=== PATIENT | male | born 1975 | race Caucasian/White ===

== ENCOUNTER 2017-12-08 06:38 | Emergency (ER) | payer MEDICAID ==
[~2017-12-08] VITALS: Ht 185.4 cm; Wt 99.0 kg
[~2017-12-08 06:38] MED LIST: CLIN-80 PO; NABU500T2 PO; TRAM50TA2 PO
[2017-12-08] MEDS ORDERED: CEPH-571 PO (07:54)
[2017-12-08] MEDS ORDERED: TRAM50TA2 PO (07:54)
[2017-12-08 08:21] VITALS: BP 150/89
== END 2017-12-08 08:15 | disposition home or self-care (01) ==
LOC: ER 06:39
DX: K08.89 Other specified disorders of teeth and supporting structures (principal); Z88.1 Allergy status to other antibiotic agents
CPT/HCPCS: 99283

== ENCOUNTER 2018-07-20 10:52 | Emergency (ER) | payer MEDICAID ==
[~2018-07-20] VITALS: Ht 182.9 cm; Wt 98.4 kg
[~2018-07-20 10:52] MED LIST changes: +CEPH-571 PO; -CLIN-80 PO; +CLIN300C85 PO
[2018-07-20] MEDS ORDERED: GABA-532 PO (11:52)
[2018-07-20 12:11] VITALS: BP 153/87
== END 2018-07-20 12:13 | disposition home or self-care (01) ==
LOC: ER 10:52
DX: F11.23 Opioid dependence with withdrawal (principal); G89.29 Other chronic pain; Z88.1 Allergy status to other antibiotic agents; Z88.5 Allergy status to narcotic agent; Z79.2 Long term (current) use of antibiotics; Z79.899 Other long term (current) drug therapy
CPT/HCPCS: 99283

== ENCOUNTER 2019-03-15 13:52 | Emergency (ER) | payer MEDICAID ==
[~2019-03-15] VITALS: Ht 182.9 cm; Wt 105.5 kg
[~2019-03-15 13:52] MED LIST changes: +CLIN-96 PO; -CLIN300C85 PO; +GABA-532 PO
[2019-03-15 14:38] LABS: BASOPHILS % (AUTO) 0.5 % (0-1); EOSINOPHILS # (AUTO) 0.3 X10'3 (0-0.9); EOSINOPHILS % (AUTO) 4.5 % (0-6); HEMATOCRIT 37.2 % (42.0-52.0); HEMOGLOBIN 12.6 g/dl (14.0-17.9); LYMPHOCYTES # (AUTO) 1.9 X10'3 (1.1-4.8); LYMPHOCYTES % (AUTO) 29.5 % (21-51); MEAN CORPUSCULAR HEMOGLOBIN 30.1 PG (27.0-31.0); MEAN CORPUSCULAR VOLUME 88.4 FL (78-98); MEAN PLATELET VOLUME 8.4 FL (7.4-10.4); MONOCYTES # (AUTO) 0.6 X10'3 (0-0.9); MONOCYTES % (AUTO) 9.7 % (2-12); NEUTROPHILS # (AUTO) 3.5 X10'3 (1.8-7.7); NEUTROPHILS % (AUTO) 55.8 % (42-75); PLATELET COUNT 261 X10'3 (140-440); RED BLOOD COUNT 4.21 X10'6 (4.70-6.10); RED CELL DISTRIBUTION WIDTH 13.3 % (11.5-14.5); WHITE BLOOD COUNT 6.4 X10'3 (4.5-11.0)
[2019-03-15] MEDS ORDERED: proCHLORperazine 10 MG/2 ml inj IM ONE (14:55)
[2019-03-15 14:56] LABS: ALANINE AMINOTRANSFERASE 116 U/L (12-78); ALBUMIN/GLOBULIN RATIO 1.3 (1.1-1.5); ALKALINE PHOSPHATASE 77 IU/L (46-116); ANION GAP 5 (8-16); ASPARTATE AMINO TRANSFERASE 52 U/L (10-37); BILIRUBIN,TOTAL 0.2 MG/DL (0.1-1.0); BLOOD UREA NITROGEN 11 MG/DL (7-18); BUN/CREATININE RATIO 11.5 (5.4-32.0); CALCIUM 9.2 MG/DL (8.5-10.1); CHLORIDE 104 MMOL/L (99-107); CREATININE 0.96 MG/DL (0.60-1.10); GLUCOSE 111 MG/DL (70-104); MAGNESIUM 1.9 MG/DL (1.5-2.4); POTASSIUM 3.9 MMOL/L (3.5-5.1); SODIUM 137 MMOL/L (135-145); TOTAL CARBON DIOXIDE 28.3 MMOL/L (24-32); eGFR 85 ML/MIN
[2019-03-15] MEDS ORDERED: proCHLORperazine 10 MG/2 ml inj IV ONE (15:00)
[2019-03-15 15:36] VITALS: BP 146/90
== END 2019-03-15 15:40 | disposition home or self-care (01) ==
LOC: ER 13:53
DX: D64.9 Anemia, unspecified (principal); K62.5 Hemorrhage of anus and rectum; R51 Headache; G89.29 Other chronic pain; Z88.1 Allergy status to other antibiotic agents; Z88.5 Allergy status to narcotic agent; Z79.899 Other long term (current) drug therapy
CPT/HCPCS: 36415; 80053; 83735; 84484; 85025; 93005; 96374; 99284; J0780

== ENCOUNTER 2019-05-05 18:49 | Emergency (ER) | payer MEDICAID ==
[~2019-05-05] VITALS: Ht 180.3 cm; Wt 104.0 kg
[2019-05-05 18:54] VITALS: BP 135/89
--- NOTE | 2019-05-05 20:19 | NUR ---
PT NIL. CALLED PT AT NUMBER ON FILE. HE STATES HE IS FEELING BETTER AND DIDN'T WANT TO BE SEEN. ADVISED PT THAT WE WERE READY TO SEE HIM AND TO RETURN TO ER IF S\S RETURN OR PERSIST.
== END 2019-05-05 20:21 | disposition left against medical advice (07) ==
LOC: ER 18:50
DX: M79.602 Pain in left arm (principal); R07.89 Other chest pain; Z53.21 Procedure and treatment not carried out due to patient leaving prior to being seen by health care provider
CPT/HCPCS: 93005

== ENCOUNTER 2021-01-08 13:17 | Emergency (ER) | payer MEDICAID ==
[~2021-01-08] VITALS: Ht 182.9 cm; Wt 104.5 kg
[~2021-01-08 13:17] MED LIST changes: -CLIN-96 PO; +CLIN-97 PO; +NABU-134 PO; -NABU500T2 PO
== END 2021-01-08 15:05 | disposition left against medical advice (07) ==
LOC: ER 13:18
DX: R09.89 Other specified symptoms and signs involving the circulatory and respiratory systems (principal); M79.18 Myalgia, other site; Z53.21 Procedure and treatment not carried out due to patient leaving prior to being seen by health care provider

== ENCOUNTER 2021-05-31 20:14 | Emergency (ER) | payer MEDICAID ==
[~2021-05-31] VITALS: Ht 182.9 cm; Wt 95.0 kg
[~2021-05-31 20:14] MED LIST changes: -NABU-134 PO; +NABU-139 PO
[2021-05-31 22:02] VITALS: BP 158/95
[2021-06-01] MEDS ORDERED: CLIN-97 PO (11:08)
== END 2021-05-31 23:41 | disposition left against medical advice (07) ==
LOC: ER 20:16
DX: L02.416 Cutaneous abscess of left lower limb (principal); Z53.21 Procedure and treatment not carried out due to patient leaving prior to being seen by health care provider

== ENCOUNTER 2021-06-01 10:14 | Emergency (ER) | payer MEDICAID ==
[~2021-06-01] VITALS: Ht 182.9 cm; Wt 106.4 kg
[2021-06-01] MEDS ORDERED: clindamycin 150mg capsule PO ONE (11:05)
[2021-06-01] MEDS ORDERED: diphenhydrAMINE 25mg capsule PO ONE (11:05)
[2021-06-01] MEDS ORDERED: HYDROcodone/acetaminophen 5mg/325mg tablet PO ONE (11:05)
[2021-06-01] MEDS ORDERED: CLIN-97 PO (11:08)
[2021-06-01 11:19] VITALS: BP 111/61
== END 2021-06-01 11:19 | disposition home or self-care (01) ==
LOC: ER 10:15
DX: R09.81 Nasal congestion (principal); T36.8X5A Adverse effect of other systemic antibiotics, initial encounter; L02.416 Cutaneous abscess of left lower limb; G89.29 Other chronic pain; Z88.1 Allergy status to other antibiotic agents; Z88.8 Allergy status to other drugs, medicaments and biological substances; Z79.2 Long term (current) use of antibiotics; Z79.899 Other long term (current) drug therapy; Y92.89 Other specified places as the place of occurrence of the external cause
CPT/HCPCS: 99284; Q0163

== ENCOUNTER 2021-10-01 13:30 | Emergency (ER) | payer MEDICAID ==
[~2021-10-01] VITALS: Ht 182.9 cm; Wt 100.0 kg
[2021-10-01 13:47] VITALS: BP 200/120
[2021-10-01 14:55] LABS: BASOPHILS % (AUTO) 0.7 % (0-1); EOSINOPHILS % (AUTO) 0.2 % (0-6); HEMATOCRIT 43.2 % (42.0-52.0); HEMOGLOBIN 14.6 g/dl (14.0-17.9); LYMPHOCYTES # (AUTO) 2.4 X10'3 (1.1-4.8); LYMPHOCYTES % (AUTO) 34.5 % (21-51); MEAN CORPUSCULAR HEMOGLOBIN 28.3 PG (27.0-31.0); MEAN CORPUSCULAR HGB CONC 33.9 g/dL (33.0-36.5); MEAN CORPUSCULAR VOLUME 83.6 FL (78-98); MONOCYTES # (AUTO) 0.5 X10'3 (0-0.9); MONOCYTES % (AUTO) 6.5 % (2-12); NEUTROPHILS # (AUTO) 4.1 X10'3 (1.8-7.7); NEUTROPHILS % (AUTO) 58.1 % (42-75); PLATELET COUNT 168 X10'3 (140-440); RED BLOOD COUNT 5.17 X10'6 (4.70-6.10); RED CELL DISTRIBUTION WIDTH 13.8 % (11.5-14.5)
[2021-10-01 15:07] LABS: ALANINE AMINOTRANSFERASE 35 U/L (12-78); ALBUMIN 4.1 G/DL (3.4-5.0); ALBUMIN/GLOBULIN RATIO 1.3 (1.1-1.5); ALKALINE PHOSPHATASE 102 IU/L (46-116); ANION GAP 8 (8-16); ASPARTATE AMINO TRANSFERASE 15 U/L (10-37); BILIRUBIN,TOTAL 0.1 MG/DL (0.1-1.0); BLOOD UREA NITROGEN 11 MG/DL (7-18); BUN/CREATININE RATIO 10.9 (5.4-32.0); CALCIUM 9.3 MG/DL (8.5-10.1); CHLORIDE 101 MMOL/L (99-107); CREATININE 1.01 MG/DL (0.60-1.10); GLUCOSE 142 MG/DL (70-104); MAGNESIUM 2.1 MG/DL (1.5-2.4); POTASSIUM 3.8 MMOL/L (3.5-5.1); SODIUM 138 MMOL/L (135-145); TOTAL CARBON DIOXIDE 29.3 MMOL/L (24-32); TOTAL PROTEIN 7.3 G/DL (6.4-8.2); eGFR 79 ML/MIN
[2021-10-01 15:12] LABS: ABG BASE EXCESS 1.5 mmol/L (-2.0-2.0); ABG HCO3 27.1 mmol/L (22.0-26.0); ABG OXYGEN SATURATION 95.3 % (94-97); ABG PCO2 (T) 46.3 mmHg (35.0-48.0); ABG PO2 (T) 77.5 mmHg (75.0-100.0); ALLEN'S TEST POSITIVE; FCOHb 1.9 % (0.0-3.9); FMetHb 0.1 % (0.0-1.5); FO2Hb 93.4 % (94-97); TOTAL HEMOGLOBIN 15.1 G/dl (14.0-18.0)
--- NOTE | 2021-10-01 16:26 | NUR ---
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
--- NOTE | 2021-10-01 16:28 | NUR ---
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 Patient declines COVID test.
== END 2021-10-01 16:31 | disposition home or self-care (01) ==
LOC: ER 13:31
DX: R51.9 Headache, unspecified (principal); R11.10 Vomiting, unspecified; R42 Dizziness and giddiness; G89.29 Other chronic pain; M54.9 Dorsalgia, unspecified; Z88.0 Allergy status to penicillin; Z88.5 Allergy status to narcotic agent; Z79.899 Other long term (current) drug therapy
CPT/HCPCS: 36415; 36600; 80053; 82803; 83735; 84145; 85018; 85025; 99283

== ENCOUNTER 2022-12-11 18:42 | Emergency (ER) | payer MEDICAID ==
[~2022-12-11] VITALS: Ht 182.9 cm; Wt 105.0 kg
[2022-12-11 18:44] VITALS: BP 178/82
[2022-12-11] MEDS ORDERED: oxyCODONE/APAP 5-325mg tablet PO ONE (20:30)
[2022-12-11] MEDS ORDERED: NAPR-56 PO (20:42)
[2022-12-11] MEDS ORDERED: OXYC-145 PO (20:42)
== END 2022-12-11 21:10 | disposition home or self-care (01) ==
LOC: ER 18:43
DX: S93.492A Sprain of other ligament of left ankle, initial encounter (principal); G89.29 Other chronic pain; Z88.1 Allergy status to other antibiotic agents; Z88.5 Allergy status to narcotic agent; Z79.899 Other long term (current) drug therapy; X58.XXXA Exposure to other specified factors, initial encounter; Y93.89 Activity, other specified; Y92.89 Other specified places as the place of occurrence of the external cause; Y99.8 Other external cause status
CPT/HCPCS: 73610; 99283; L4360

== ENCOUNTER 2023-11-24 12:52 | Emergency (ER) | payer MEDICAID ==
[~2023-11-24] VITALS: Ht 180.3 cm; Wt 95.5 kg
[~2023-11-24 12:52] MED LIST changes: +OXYC-145 PO
[2023-11-24 13:00] VITALS: BP 137/86; PULSE 63; RESP 18; O2SAT 97
[2023-11-24 13:33] VITALS: TEMP 97.1
== END 2023-11-24 13:36 | disposition home or self-care (01) ==
LOC: ER 12:53
DX: L72.3 Sebaceous cyst (principal); I10 Essential (primary) hypertension; M54.50 Low back pain, unspecified; Z88.0 Allergy status to penicillin; Z88.8 Allergy status to other drugs, medicaments and biological substances; Z79.899 Other long term (current) drug therapy; Z79.2 Long term (current) use of antibiotics
CPT/HCPCS: 71045; 99283

== ENCOUNTER 2024-02-24 15:21 | Emergency (ER) | payer MEDICAID ==
[~2024-02-24] VITALS: Ht 182.9 cm; Wt 97.5 kg
[2024-02-24 16:01] LABS: BASOPHILS % (AUTO) 0.3 % (0-1); EOSINOPHILS % (AUTO) 0.2 % (0-6); HEMATOCRIT 39.5 % (42.0-52.0); LYMPHOCYTES # (AUTO) 2.1 X10'3 (1.1-4.8); LYMPHOCYTES % (AUTO) 28.9 % (21-51); MEAN CORPUSCULAR HEMOGLOBIN 27.7 PG (27.0-31.0); MEAN CORPUSCULAR HGB CONC 32.9 g/dL (33.0-36.5); MEAN PLATELET VOLUME 9.1 FL (7.4-10.4); MONOCYTES # (AUTO) 0.5 X10'3 (0-0.9); MONOCYTES % (AUTO) 6.8 % (2-12); NEUTROPHILS # (AUTO) 4.6 X10'3 (1.8-7.7); NEUTROPHILS % (AUTO) 63.8 % (42-75); PLATELET COUNT 153 X10'3 (140-440); RED CELL DISTRIBUTION WIDTH 14.2 % (11.5-14.5); WHITE BLOOD COUNT 7.2 X10'3 (4.5-11.0)
[2024-02-24 16:10] LABS: ALBUMIN 3.8 G/DL (3.4-5.0); ANION GAP 8 (8-16); CALCIUM 8.8 MG/DL (8.5-10.1); CHLORIDE 104 MMOL/L (99-107); CREATININE 0.85 MG/DL (0.60-1.10); GLUCOSE 126 MG/DL (70-104); POTASSIUM 3.8 MMOL/L (3.5-5.1); SODIUM 139 MMOL/L (135-145); TOTAL CARBON DIOXIDE 26.8 MMOL/L (24-32); eCRCL 114 ML/MIN; eGFR > 90 ML/MIN
[2024-02-24 16:14] LABS: APTT 26 SECONDS (22-32)
[2024-02-24 16:48] LABS: BLOOD UREA NITROGEN 11 MG/DL (7-18); BUN/CREATININE RATIO 12.9 (10.0-20.0)
[2024-02-24 17:17] VITALS: BP 120/69; PULSE 62; RESP 12; TEMP 98; O2SAT 100
== END 2024-02-24 19:14 | disposition left against medical advice (07) ==
LOC: ER 15:21
DX: R20.0 Anesthesia of skin (principal); M79.601 Pain in right arm; I10 Essential (primary) hypertension; Z88.0 Allergy status to penicillin; Z88.8 Allergy status to other drugs, medicaments and biological substances; Z79.899 Other long term (current) drug therapy; Z79.2 Long term (current) use of antibiotics
CPT/HCPCS: 36415; 70450; 71045; 80048; 82948; 85025; 85610; 85730; 93005; 99285

== ENCOUNTER 2025-01-16 19:42 | Emergency (ER) | payer MEDICAID ==
[~2025-01-16] VITALS: Ht 180.3 cm; Wt 102.1 kg
[2025-01-16 19:54] VITALS: BP 145/82; PULSE 71; RESP 16; TEMP 97.7; O2SAT 98
[2025-01-16 20:32] LABS: BILIRUBIN,URINE NEGATIVE (Neg); CLARITY,URINE CLEAR (Clear); COLOR,URINE YELLOW (Yellow); GLUCOSE, URINE NEGATIVE (Neg); KETONES,URINE NEGATIVE (Neg); LEUKOCYTE ESTERASE ,URINE NEGATIVE (Neg); NITRITES, URINE NEGATIVE (Neg); OCCULT BLOOD,URINE NEGATIVE (Neg); PROTEIN,URINE NEGATIVE (Neg); UROBILINOGEN,URINE 0.2 E.U/dL (0.2-1.0)
[2025-01-16 20:34] LABS: UA COLLECTION TYPE CLN CATCH MIDSTREAM
[2025-01-16 20:40] LABS: BASOPHILS # (AUTO) 0.1 X10'3 (0-0.2); BASOPHILS % (AUTO) 0.8 % (0-1); EOSINOPHILS % (AUTO) 0.1 % (0-6); HEMATOCRIT 40.6 % (42.0-52.0); HEMOGLOBIN 13.4 g/dl (14.0-17.9); LYMPHOCYTES # (AUTO) 2.8 X10'3 (1.1-4.8); LYMPHOCYTES % (AUTO) 42.6 % (21-51); MEAN CORPUSCULAR HEMOGLOBIN 27.9 PG (27.0-31.0); MEAN CORPUSCULAR HGB CONC 32.9 g/dL (33.0-36.5); MEAN CORPUSCULAR VOLUME 84.7 FL (78-98); MEAN PLATELET VOLUME 9.1 FL (7.4-10.4); MONOCYTES # (AUTO) 0.6 X10'3 (0-0.9); MONOCYTES % (AUTO) 8.8 % (2-12); NEUTROPHILS # (AUTO) 3.2 X10'3 (1.8-7.7); NEUTROPHILS % (AUTO) 47.7 % (42-75); PLATELET COUNT 144 X10'3 (140-440); RED BLOOD COUNT 4.79 X10'6 (4.70-6.10); RED CELL DISTRIBUTION WIDTH 13.8 % (11.5-14.5); WHITE BLOOD COUNT 6.6 X10'3 (4.5-11.0)
[2025-01-16 20:57] LABS: ALANINE AMINOTRANSFERASE 96 U/L (12-78); ALBUMIN 3.9 G/DL (3.4-5.0); ALBUMIN/GLOBULIN RATIO 1.3 (1.1-1.5); ALKALINE PHOSPHATASE 130 IU/L (46-116); ANION GAP 5 (8-16); ASPARTATE AMINO TRANSFERASE 38 U/L (10-37); BILIRUBIN,TOTAL 0.2 MG/DL (0.1-1.0); BLOOD UREA NITROGEN 16 MG/DL (7-18); BUN/CREATININE RATIO 16.2 (10.0-20.0); CALCIUM 8.9 MG/DL (8.5-10.1); CHLORIDE 106 MMOL/L (99-107); CREATININE 0.99 MG/DL (0.60-1.10); GLUCOSE 87 MG/DL (70-104); POTASSIUM 4.1 MMOL/L (3.5-5.1); SODIUM 140 MMOL/L (135-145); TOTAL CARBON DIOXIDE 28.9 MMOL/L (24-32); TOTAL PROTEIN 6.8 G/DL (6.4-8.2); eCRCL 94 ML/MIN; eGFR 80 ML/MIN
[2025-01-16 23:05] LABS: LIPASE 37 U/L (16-77)
== END 2025-01-16 23:36 | disposition left against medical advice (07) ==
LOC: ER 19:43
DX: R31.9 Hematuria, unspecified (principal); Z88.0 Allergy status to penicillin; Z53.21 Procedure and treatment not carried out due to patient leaving prior to being seen by health care provider
CPT/HCPCS: 36415; 80053; 81003; 83690; 85025